=== PATIENT | female | born 1995 | race Caucasian/White ===

== ENCOUNTER 2022-03-31 08:28 | Outpatient (CLI) | payer OTHER, SELFPAY ==
[2022-03-31 12:13] LABS: Albumin* 4.4 g/dL (3.3-5.0)
[2022-03-31 12:14] LABS: Chloride* 102 mmol/L (96-114); Sodium* 139 mmol/L (135-149)
[2022-03-31 12:15] LABS: Potassium* 4.1 mmol/L (3.6-5.1)
[2022-03-31 12:16] LABS: Cholesterol* 168 mg/dL (90-199); Creatinine* 0.6 mg/dL (0.5-1.5); Estimated Glomerular Filt Rate 125 ml/min
[2022-03-31 12:17] LABS: Alanine Aminotransferase* 24 U/L (4-35); Alkaline Phosphatase* 105 U/L (40-150); Aspartate Amino Transferase* 27 U/L (12-35); Bilirubin Total* 0.7 mg/dL (0.1-1.5); Blood Urea Nitrogen* 14 mg/dL (5-24); Calcium* 9.2 mg/dL (8.4-10.6); Carbon Dioxide* 29 mmol/L (20-32); Glucose* 86 mg/dL (60-115); Total Protein* 7.5 g/dL (6.0-8.3); Triglycerides* 60 mg/dL (40-149)
[2022-03-31 12:18] LABS: HDL Cholesterol* 69 mg/dL (>=50); LDL Cholesterol Calculated 87 mg/dL (<100)
[2022-04-03 13:27] LABS: Free T4 Free Thyroxine* 1.26 ng/dL (0.70-1.85)
== END 2022-03-31 08:29 | disposition home or self-care (01) ==
LOC: LKVLAB 08:28
PROVIDERS: PCP Physician Assistant Medical; Visit Provider Physician Assistant Medical
DX: Z00.00 Encounter for general adult medical examination without abnormal findings (principal); E06.3 Autoimmune thyroiditis; Z13.6 Encounter for screening for cardiovascular disorders
CPT/HCPCS: 36415; 80053; 80061

== ENCOUNTER 2022-04-03 10:21 | Outpatient (CLI) | payer OTHER, SELFPAY | END 2022-04-03 10:22 | disposition home or self-care (01) | LOC: LKVREF 10:34 | PROVIDERS: PCP Physician Assistant Medical; Visit Provider Physician Assistant Medical | DX: Z00.00 Encounter for general adult medical examination without abnormal findings (principal); E06.3 Autoimmune thyroiditis; N63.0 Unspecified lump in unspecified breast | CPT/HCPCS: 36415; 84439; 84443 ==

== ENCOUNTER 2022-04-04 10:13 | Outpatient (CLI) | payer OTHER, SELFPAY ==
--- NOTE | 2022-04-04 10:15 | CRLHL7_ITS ---
For Patients: As a result of the Cures Act, medical imaging exams and procedure reports are released immediately into your electronic medical record. You may view this report before your referring provider. If you have questions, please contact your health care provider. RIGHT BREAST ULTRASOUND CLINICAL HISTORY: Palpable area RIGHT breast. Breast feeding x11 months. COMPARISON: None. TECHNIQUE: Real-time ultrasound imaging of RIGHT breast with imaging documentation. Scanning was performed by both the technologist and the radiologist. FINDINGS: Targeted RIGHT breast ultrasound to the area of concern performed, lower outer quadrant, 8 o`clock position. Dense fibroglandular tissue noted with multiple distended ducts containing milk products. No abscess or galactocele. No solid mass. IMPRESSION: Multiple duct ectasia with milk products. RECOMMENDATIONS: Clinical follow-up. Age-appropriate screening mammography. Results and recommendations were discussed with the patient at the time of the exam. BI-RADS Category 2: Benign A lay language report of this examination will be provided to the patient. Dictated by Emanuel Deleon MD @ 04/04/2022 10:43:32 AM /Dictated by: Emanuel Deleon MD @ 04/04/2022 10:43:00 AM (Electronically Signed)
== END 2022-04-04 10:14 | disposition home or self-care (01) ==
PROVIDERS: PCP Physician Assistant Medical; Visit Provider Physician Assistant Medical
DX: N63.10 Unspecified lump in the right breast, unspecified quadrant (principal); N60.41 Mammary duct ectasia of right breast
CPT/HCPCS: 76642

== ENCOUNTER 2022-07-13 13:53 | Outpatient (CLI) | payer OTHER, SELFPAY | END 2022-07-13 13:54 | disposition home or self-care (01) | LOC: LKVREF 16:26 | PROVIDERS: PCP Physician Assistant Medical; Visit Provider Physician Assistant Medical | DX: E03.9 Hypothyroidism, unspecified (principal) | CPT/HCPCS: 84443 ==

== ENCOUNTER 2023-06-13 13:08 | Outpatient (CLI) | payer OTHER, SELFPAY | END 2023-06-13 13:09 | disposition home or self-care (01) | PROVIDERS: PCP Physician Assistant Medical; Visit Provider Physician Assistant Medical | DX: Z00.00 Encounter for general adult medical examination without abnormal findings (principal); E03.9 Hypothyroidism, unspecified; E06.3 Autoimmune thyroiditis; R19.8 Other specified symptoms and signs involving the digestive system and abdomen; Z13.6 Encounter for screening for cardiovascular disorders; Z13.0 Encounter for screening for diseases of the blood and blood-forming organs and certain disorders involving the immune mechanism | CPT/HCPCS: 80053; 80061; 84443; 86140 ==

== ENCOUNTER 2024-04-04 12:50 | Outpatient (CLI) | payer OTHER, SELFPAY ==
--- NOTE | 2024-04-04 13:00 | CRLHL7_ITS ---
For Patients: As a result of the Cures Act, medical imaging exams and procedure reports are released immediately into your electronic medical record. You may view this report before your referring provider. If you have questions, please contact your health care provider. INDICATION: First trimester scan, establish dates. COMPARISON: None. TECHNIQUE: Real-time phillips-scale imaging of the pelvis was performed. FINDINGS: Sonographic imaging demonstrates a twin living intrauterine gestation, diamniotic/dichorionic. Twin A: The embryo demonstrates a regular cardiac rate measuring 167 beats per minute. The embryo`s crown-rump length measurement of 2.8 cm corresponds to a gestational age of 9 weeks 4 days with a sonographic due date of 11/03/2024. There is a normal-appearing yolk sac. There are no gross abnormalities noted within the embryo at this early state of development. The gestational sac has a normal appearance. Twin B: The embryo demonstrates a regular cardiac rate measuring 169 beats per minute. The embryo`s crown-rump length measurement of 2.9 cm corresponds to a gestational age of 9 weeks 5 days with a sonographic due date of 11/02/2024. There is a normal-appearing yolk sac. There are no gross abnormalities noted within the embryo at this early state of development. The gestational sac has a normal appearance. The cervix is closed. The myometrium appears normal. The ovaries are of normal size. There are no suspicious fluid collections noted in the cul-de-sac. A small superior subchorionic hemorrhage is noted measuring 2.1 x 1.2 x 0.8 cm. IMPRESSION: Twin A: Gestational age calculated at 9 weeks 4 days with a sonographic due date of 11/03/2024. Twin B: Gestational age calculated at 9 weeks 5 days with a sonographic due date of 11/02/2024. Dictated by Emanuel Deleon MD @ 04/04/2024 10:32:43 PM (Electronically Signed)
== END 2024-04-04 12:51 | disposition home or self-care (01) ==
PROVIDERS: PCP Physician Assistant Medical; Visit Provider Registered Nurse
DX: Z34.91 Encounter for supervision of normal pregnancy, unspecified, first trimester (principal); O30.041 Twin pregnancy, dichorionic/diamniotic, first trimester; Z3A.09 9 weeks gestation of pregnancy
CPT/HCPCS: 76817; 82565; 82570; 84156; 84439; 84443; 84450; 84460; 84520; 86592; 86703; 86704; 86706; 86762; 86787; 86803; 86850; 86900; 86901; 87086; 87340; 87491; 87591

== ENCOUNTER 2024-04-11 09:15 | Outpatient (CLI) | payer OTHER, SELFPAY | END 2024-04-11 09:16 | disposition home or self-care (01) | LOC: NFLDREF 04-15 16:01 | PROVIDERS: PCP Physician Assistant Medical; Referring Provider Physician Assistant Medical; Visit Provider Registered Nurse | DX: Z34.81 Encounter for supervision of other normal pregnancy, first trimester (principal) | CPT/HCPCS: 82570; 84156 ==

== ENCOUNTER 2024-05-02 13:16 | Outpatient (CLI) | payer OTHER, SELFPAY | END 2024-05-02 13:17 | disposition home or self-care (01) | PROVIDERS: PCP Physician Assistant Medical; Visit Provider Obstetrics & Gynecology | DX: O30.001 Twin pregnancy, unspecified number of placenta and unspecified number of amniotic sacs, first trimester (principal); E06.3 Autoimmune thyroiditis; E03.9 Hypothyroidism, unspecified; Z3A.13 13 weeks gestation of pregnancy | CPT/HCPCS: 84439; 84443; 84481 ==

== ENCOUNTER 2024-05-29 14:46 | Outpatient (CLI) | payer OTHER, SELFPAY | END 2024-05-29 14:47 | disposition home or self-care (01) | LOC: NFLDREF 14:47 | PROVIDERS: PCP Physician Assistant Medical; Visit Provider Obstetrics & Gynecology | DX: E03.9 Hypothyroidism, unspecified (principal) | CPT/HCPCS: 84443 ==

== ENCOUNTER 2024-07-29 12:51 | Outpatient (CLI) | payer OTHER, SELFPAY ==
--- NOTE | 2024-07-29 13:00 | CRLHL7_ITS ---
For Patients: As a result of the Century Cures Act, medical imaging exams and procedure reports are released immediately into your electronic medical record. You may view this report before your referring provider. If you have questions, please contact your health care provider. INDICATION: Di-di twins COMPARISON: 06/23/2024 TECHNIQUE: Real-time grayscale imaging of the twins was performed. FINDINGS: Sonographic imaging demonstrates a living twin intrauterine gestation. Twin A demonstrates a regular cardiac rate of 155 beats per minute. Twin A has a breech position. The placenta lies anteriorly. Amniotic fluid volume appears normal and the largest fluid pocket measures 7.2 cm. The estimated weight is 940 gm which lies at the 59th percentile. BPD 48th percentile. HC 30th percentile. AC is 71st percentile. FL 33rd percentile. The HC/AC ratio measures 1.07 range (1.05-1.22). Twin B demonstrates a regular cardiac rate of 165 beats per minute. Twin B has a breech position. The placenta lies posterior. Amniotic fluid volume appears normal and the largest fluid pocket measures 5.1 cm. The estimated weight is 988 gm which lies at the 74th percentile. BPD 30th percentile. HC 33rd percentile. AC 80th percentile. FL 51st percentile. The HC/AC ratio measures 1.05 range (1.05-1.22). IMPRESSION: Twin A: Sonographic gestational age 26 weeks 2 days and a sonographic due date of 11/02/2024. Estimated weight 59th percentile. Abdominal circumference 71st percentile. Twin B: Sonographic gestational age 26 weeks 3 days and a sonographic due date of 11/01/2024. Estimated weight 74th percentile. Abdominal circumference 80th percentile Dictated by Emanuel Deleon MD @ 07/30/2024 12:21:14 PM (Electronically Signed)
== END 2024-07-29 12:52 | disposition home or self-care (01) ==
PROVIDERS: PCP Physician Assistant Medical; Visit Provider Obstetrics & Gynecology
DX: O30.042 Twin pregnancy, dichorionic/diamniotic, second trimester (principal); Z3A.26 26 weeks gestation of pregnancy
CPT/HCPCS: 76816

== ENCOUNTER 2024-08-01 14:24 | Outpatient (CLI) | payer OTHER, SELFPAY ==
[2024-08-01] VITALS (10 sets, daily range): BP systolic 118–127; BP diastolic 64–77; PULSE 73–80; RESP 18; TEMP 36.6; O2SAT 97–100
--- NOTE | 2024-08-01 18:14 | PC.OBNST ---
NST Note NST Note Start: 08/01/24 14:28 Freq: ONCE Status: Active Protocol: Document 08/01/24 18:07 VMM (Rec: 08/01/24 18:14 VMM Desktop) NST Note 2 Para (# of births) 1 EDC 11/04/24 Gestational Age In Weeks & Days 26 Weeks & 3 Days High Risk Factors Twins Patient Presented with Complaint(s) of Other Other Complaints Patient described feeling off . She had had increased swelling on her right side. Yesterday she had visual disturbance that presented as flashes of light. She took her blood pressure at home, and it was 120/70 and after re- check it was 121/100. Patient states that these blood pressure readings are higher than her normal baseline. The patient has a history of severe pre-eclampsia. This note is for Baby A. Reactive Yes Appropriate for Gestational Age Yes DARCY Luna RN Date 08/01/24 Reactive Yes Appropriate for Gestational Age Yes JANNA Strong Date 08/01/24 OB NST charge Yes Complete NST Note via Write Note Yes The provider's electronic signature indicates the NST is reactive/appropriate for gestational age. *Note to provider: If an addendum is required, open the patient's chart and click on the note under the Nurse/Allied Health tab.
--- NOTE | 2024-08-01 18:18 | PC.OBNST ---
NST Note NST Note Start: 08/01/24 14:28 Freq: ONCE Status: Active Protocol: Document 08/01/24 18:16 VMM (Rec: 08/01/24 18:18 VMM Desktop) NST Note 2 Para (# of births) 1 EDC 11/04/24 Gestational Age In Weeks & Days 26 Weeks & 3 Days High Risk Factors Twins Patient Presented with Complaint(s) of Other Other Complaints Patient described feeling off . She had had increased swelling on her right side. Yesterday she had visual disturbance that presented as flashes of light. She took her blood pressure at home, and it was 120/70 and after re- check it was 121/100. Patient states that these blood pressure readings are higher than her normal baseline. The patient has a history of severe pre-eclampsia. This note is for Baby B. Reactive Yes Appropriate for Gestational Age Yes DARCY Luna RN Date 08/01/24 Reactive Yes Appropriate for Gestational Age Yes JANNA Strong Date 08/01/24 OB NST charge Yes Complete NST Note via Write Note Yes The provider's electronic signature indicates the NST is reactive/appropriate for gestational age. *Note to provider: If an addendum is required, open the patient's chart and click on the note under the Nurse/Allied Health tab.
== END 2024-08-01 16:28 | disposition home or self-care (01) ==
LOC: OB OUT 14:24 → OB 14:25
PROVIDERS: PCP Physician Assistant Medical; Visit Provider Obstetrics & Gynecology
DX: O30.002 Twin pregnancy, unspecified number of placenta and unspecified number of amniotic sacs, second trimester (principal); Z3A.26 26 weeks gestation of pregnancy
CPT/HCPCS: 59025; G0463

== ENCOUNTER 2024-08-11 08:40 | Outpatient (CLI) | payer OTHER, SELFPAY | END 2024-08-11 08:41 | disposition home or self-care (01) | LOC: NFLDREF 08-14 05:17 | PROVIDERS: PCP Physician Assistant Medical; Referring Provider Physician Assistant Medical; Visit Provider Obstetrics & Gynecology | DX: O30.042 Twin pregnancy, dichorionic/diamniotic, second trimester (principal); E06.3 Autoimmune thyroiditis; Z3A.27 27 weeks gestation of pregnancy | CPT/HCPCS: 84443; 86592 ==

== ENCOUNTER 2024-08-26 08:53 | Outpatient (CLI) | payer OTHER, SELFPAY ==
--- NOTE | 2024-08-26 09:00 | CRLHL7_ITS ---
For Patients: As a result of the Century Cures Act, medical imaging exams and procedure reports are released immediately into your electronic medical record. You may view this report before your referring provider. If you have questions, please contact your health care provider. INDICATION: Twin , dichorionic diamniotic TECHNIQUE: Conventional transabdominal two-dimensional phillips-scale ultrasound examination. COMPARISON: 07/29/2024 FINDINGS: There is are living twins with gestational age of 30 weeks and EDC of 11/04/2024. Twin A: Cephalic, on maternal left. Gestational age based on today`s measurements 30 weeks 3 days. BPD: 7.9 cm, 31 weeks 6 days Head circumference: 28.1 cm, 30 weeks 6 days Abdominal circumference: 25.5 cm, 29 weeks 5 days Femur length: 5.5 cm, 29 weeks 1 day The weight is estimated at 1450 grams, the 29th percentile. The heart rate is measured at 150 beats per minute and the rhythm appears regular. The placenta is anterior and above the cervical os. There is no evidence of previa. The amniotic fluid volume is within normal limits with single deepest pocket measured at 4.8 cm. Twin B: Breech, on maternal right. Gestational age based on today`s measurements 30 weeks 1 day. BPD: 5.3 cm, 30 weeks 1 day Head circumference: 27.8 cm, 30 weeks 3 days Abdominal circumference: 26.0 cm, 30 weeks 1 day Femur length: 5.7 cm, 29 weeks 5 days The weight is estimated at 1502 grams, the 39th percentile. The heart rate is measured at 131 beats per minute and the rhythm appears regular. The placenta is posterior and above the cervical os. There is no evidence of previa. The amniotic fluid volume is within normal limits with single deepest pocket of 5.3 cm. IMPRESSION: 1. Living dichorionic diamniotic twins with gestational age of 30 weeks and EDC of 11/04/2024. 2. Measurements in both babies normal for dates. 3. No complication evident. Dictated by oDnn Espinoza MD @ 08/28/2024 6:07:33 AM (Electronically Signed)
== END 2024-08-26 08:54 | disposition home or self-care (01) ==
LOC: US 08:53
PROVIDERS: PCP Physician Assistant Medical; Visit Provider Obstetrics & Gynecology
DX: O30.043 Twin pregnancy, dichorionic/diamniotic, third trimester (principal); Z3A.30 30 weeks gestation of pregnancy
CPT/HCPCS: 76816

== ENCOUNTER 2024-08-26 10:25 | Outpatient (CLI) | payer OTHER, SELFPAY ==
--- NOTE | 2024-08-26 11:15 | CRLHL7_ITS ---
For Patients: As a result of the Century Cures Act, medical imaging exams and procedure reports are released immediately into your electronic medical record. You may view this report before your referring provider. If you have questions, please contact your health care provider. INDICATION: Significant swelling and twin TECHNIQUE: Ultrasound venous duplex lower right extremity. Compression venous exam was performed using phillips-scale, color Doppler, and spectral Doppler imaging. COMPARISON: None. FINDINGS: Sonographic imaging demonstrates the right common femoral, deep femoral, superficial femoral, popliteal, posterior tibial and greater saphenous and the contralateral left common femoral veins to be fully compressible with normal color Doppler blood flow. IMPRESSION: Normal right lower extremity venous ultrasound, no sign of deep venous thrombosis. Dictated by David Ornelas MD @ 08/26/2024 11:31:18 AM (Electronically Signed)
== END 2024-08-26 10:26 | disposition home or self-care (01) ==
LOC: US 10:26
PROVIDERS: PCP Physician Assistant Medical; Visit Provider Obstetrics & Gynecology
DX: O26.899 Other specified pregnancy related conditions, unspecified trimester (principal); M79.89 Other specified soft tissue disorders
CPT/HCPCS: 93971

== ENCOUNTER 2024-09-04 12:16 | Outpatient (CLI) | payer OTHER, SELFPAY ==
[2024-09-04] VITALS (9 sets, daily range): BP systolic 124–136; BP diastolic 79–86; PULSE 69–84; RESP 16; TEMP 36.8; O2SAT 98
--- OUTSIDE RECORDS SUMMARY | 2024-09-04 11:44 | XMS_ITS | Clinical Summary ---
Author Organization [facility] Address [place], [place] [address] Care Team Providers Care Home Service Consultant Name Role Phone Rashida Salas PA-C Primary Care Provider [phone] Allergies Active Allergy Reactions Criticality Noted Date Comments Amoxicillin Rash Low 09/30/2020 Medications Levothyroxine 125 mcg cap Daily 10/01/2020 Active VIT [id number]-DHA ORAL Daily Active Social History Tobacco Use Types Packs/Day Years Used Date Smoking Tobacco: Never Smokeless Tobacco: Never Tobacco Cessation:Counseling Given: Yes Social Connections Answer Date Recorded Frequency of Communication with Friends and Fami ly Not on file 09/03/2021 Financial Resource Strain Answer Date R ecorded Difficulty of Paying Living Expenses Not on file 09/03/2021 Difficulty of Paying Living Expenses Not on file 09/03/2021 Comments Unknown Sex and Gender Information Value Date Recorded Sex Assigned at Not on file Legal Sex Female 5:08 PM [employer] Gender Identity Not on file Sexual Orientation Not on file Obstetrics History Last Filed Vital Signs Vital Sign Reading Time Taken Comments Blood Pressure 130/66 10/27/2020 3:19 PM [employer] SAL[employer] Pulse 78 10/27/2020 3:19 PM [employer] Temperature - - Respiratory Rate - - Oxygen Saturation 100% 10/27/2020 3:19 PM [employer] SAL[employer] Inhaled Oxygen Concentration - - Weight 60.5 kg (133 lb 6.4 oz) 10/27/2020 3:19 P M [employer] Height - - Body Mass Index - - Plan of Treatment Health Maintenance Due Date Last Done Comments Tdap 2005 Depression screening for age 12+ 2006 HIV for age 15-65 2009 BMI (ht and wt on same day) for age 18+ 2012 Hepatitis C screening for ag e 18-79 2012 Tetanus booster 2014 COVID-19 vaccine series ( season) 2024 Influenza for age 9-49 05/04/2024 Pap test for age 21-65 04/04/2027 , 04/04/2024, 09/30/2020 Pneumococcal series for age 6-49 Aged Out No longer eligible b ased on patient's age to complete this topic Procedures Procedure Name Priority Date/Time Associated Diagnosis Comments HPV HIGH RISK Routine 04/04/2024 3:00 PM CDT from Last 3 Months or Most Recently Relevant to Health Maintenance Results * HPV HIGH RISK (04/04/2024 3:00 PM CDT) TYPE 16 Negative Negative 04/09/2024 4:20 PM CDT [facility] TYPE 18 Negative Negative 04/09/2024 4:20 PM CDT [facility] OTHER HIGH RISK TYPES Negative Negative 04/09/2024 4:20 PM CDT [facility] Other (Cervical) 04/04/2024 3:00 PM CDT 04/08/2024 12:57 PM CDT Narrative [facility] - 04/09/2024 4:20 PM CDT HPV types 16, 18, 31, 33, 35, 39, 45, 51, 52, 56, 58, 59, 66 and 68 DNA were undetectable or below the pre-set threshold. Methodology: Pelno Antonino 4800 HPV Test us Sunitha Delgado NP MICROBIOLOGY Final Res ult [facility] [address] [place] [address], from Last 3 Months or Most Recently Relevant to Health Maintenance Care Teams Home Service Consultant Relationship Specialty Start Date End Date Rashida Salas PA-C [id number] [address] PCP - General Emergency Medicine 10/27/20
--- OUTSIDE RECORDS SUMMARY | 2024-09-04 11:44 | XMS_ITS | Clinical Summary ---
Author Organization [place] Address [address] [facility] [place] [address] Care Team Providers Care Field Return Repairer Name Role Phone Rashida Salas PA-C Primary Care Provider Allergies No known active allergies Medications No known medications Encounters Date Type Department Care Team Description 06/23/2024 10:45 AM CDT Office Visit [facility] [address] [place] [phone] Margarita Chong MD Dichorionic diamniotic twin in second trimester (Primary Dx) 06/23/2024 9:30 AM CDT - 06/23/2024 11:59 PM CDT Hospital Encounter [facility] [address] [place] [phone] Margarita Chong MD related condition, antepartum Discharge Disposition: Home or Self Care 06/23/2024 Travel from Last 3 Months Immunizations Name Administration Dates Next Due DTAP (<7y) 03/08/1999 HIB (PRP-T) 04/12/1995,1994,1994 ,1994 HepB 01/01/1995,1994,1994 Historical DTP/aP 1994,1994,06/01/19 94 MMR 04/12/1995 Mantoux Tuberculin Skin Test 01/01/1995 Poliovirus, inactivated (IPV) 03/08/1999, 995,1994,1994 Varicella 04/12/1995 Family History Medical History Relation Comments Genitourinary Problems Mother Eating di sorder Relation Status Comments Brother 1 Alive Brother 2 Alive Father Alive Maternal Grandfather Alive Maternal Grandmother Alive Mother Alive Paternal Grandfather Alive Paternal Grandmother Alive Sister Alive Social History Tobacco Use Types Packs/Day Years Used Date Smoking Tobacco: Never Smokeless Tobacco: Never Alcohol Use Standard Drinks/Week Comments No 0 (1 standard drink = 0.6 oz pur e alcohol) Estimated Date of Delivery Comme nts Yes 11/04/2024 Based on last me nstrual period of 01/29/2024 Sex and Gender Information Value Date Recorded Sex Assigned at Not on file Legal Sex Female 5:07 AM PROGRAM SPECIALIST Gender Identity Not on file Sexual Orientation Not on file Last Filed Vital Signs Vital Sign Reading Time Taken Comments Blood Pressure 120/84 04/21/2024 11:52 AM CDT Pulse 76 04/21/2024 11:52 AM CDT Temperature 36.8 C (98.2 F) 09/18/2011 1:33 PM PROGRAM SPECIALIST Respiratory Rate 16 04/21/2024 11:52 AM CDT Oxygen Saturation 100% 04/21/2024 11:52 AM CDT Inhaled Oxygen Concentration - - Weight 61.2 kg (135 lb) 09/18/2011 1:33 PM PROGRAM SPECIALIST Height 160.7 cm (5' 3.25) 11/15/2009 3:05 PM CD T Body Mass Index - - Plan of Treatment Health Maintenance Due Date Last Done Comments ADVANCE CARE PLANNING 1994 ANNUAL REVIEW OF HM ORDERS 1994 HIV SCREENING 2009 YEARLY PREVENTIVE VISIT 11/15/2010 11/15/2009 HEPATITIS C SCREENING 2012 PHQ-2 (once per calendar year) 2023 MATERNAL SCREENING DISCUSSION 04/08/2024 COVID-19 Vaccine ( season) 2024 12/23/2020, 11/24/2020 INFLUENZA VACCINE (#1) 2024 3, 06/03/2021, 06/11/2020 OBGCT (OB) 07/15/2024 RSV VACCINE (1 - Risk 1-dose series) 09/09/2024 PAP 04/04/2027 04/04/2024, 04/04/2024 DTAP/TDAP/TD IMMUNIZATION (6 - Td or Tdap) 03/01/2031 03/01/2021, 03/08/1999, 1994, Additional history exists HEPATITIS B IMMUNIZATION Completed 995, 1994, 1994 HPV IMMUNIZATION Aged Out No longer e ligible based on patient's age to complete this topic MENINGITIS IMMUNIZATION Aged Out No l onger eligible based on patient's age to complete this topic Pneumococcal Vaccine: Pediatrics (0 to 5 Years) and At-Risk Patients (6 to 49 Years) Aged Out No longer eligible based on patient's age to complete this topic RSV MONOCLONAL ANTIBODY Aged Out No l onger eligible based on patient's age to complete this topic Procedures Procedure Name Priority Date/Time Associated Diagnosis Comments MFM TWINS US COMPREHENSIVE Routine 06/23/2024 10:54 AM CDT related condition, antepartum from Last 3 Months Results * MFM Twins US Comprehensive (06/23/2024 10:54 AM CDT) Anatomical Region Laterality Modality Ultrasound 06/23/2024 9:38 AM CDT Impressions 06/23/2024 12:18 PM CDT IMPRESSION ----- Dichorionic diamniotic twins at 20w 6d gestational age. Fetus 1 1. No anomalies commonly detected by ultrasound were identified in the detailed anatomic survey within the limits of ultrasound. 2. Growth parameters and estimated weight were consistent with gestational age predicted by assigned CHARISSA. 3. The amniotic fluid volume appeared normal. Fetus 2 1. No anomalies commonly detected by ultrasound were identified in the detailed anatomic survey within the limits of ultrasound. 2. Growth parameters and estimated weight were consistent with gestational age predicted by assigned CHARISSA. The inter-twin discordance was 11.2 %. 3. The amniotic fluid volume appeared normal. On transabdominal imaging the cervix appears long and closed. Narrative 06/23/2024 12:18 PM CDT Comprehensive ----- Pat. Name: TISHA HUIZAR Study Date: 06/23/2024 9:38am Pat. NO: [id number] Referring MD: WHITNEY MORAES Site: Hair Colorist: Adelia Rajput RDMS : 1995 Age: 29 ----- INDICATION ----- Dichorionic, Diamniotic Twin gestation METHOD ----- Transabdominal ultrasound examination. View: Sufficient. ----- Twin . Number of fetuses: 2. Dichorionic-diamniotic DATING ----- Date Details Gest. age CHARISSA LMP 01/29/2024 20 w + 6 d 11/04/2024 Previous U/S 04/04/2024 GA, GA 9 w + 5 d 21 w + 1 d 11/02/2024 U/S Fetus 1 06/23/2024 based upon AC, BPD, Femur, HC 21 w + 0 d 11/03/2024 U/S Fetus 2 based upon AC, BPD, Femur, HC 21 w + 2 d 11/01/2024 Assigned dating based on the LMP, selected on 04/21/2024 20 w + 6 d 11/04/2024 Fetus 1: GENERAL EVALUATION ----- Cardiac activity present. FHR 149 bpm. movements: present. Presentation: cephalic, presenting, maternal left Placenta: anterior, thick dividing membrane, no previa > 2 cm from internal os Umbilical cord: Cord vessels: 3 vessel cord. Insertion site: normal insertion Amniotic fluid: Amount of AF: normal. MVP 7.6 cm Fetus 2: GENERAL EVALUATION ----- Cardiac activity present. FHR 159 bpm. movements: present. Presentation: cephalic, maternal right Placenta: posterior, thick dividing membrane Umbilical cord: Cord vessels: 3 vessel cord. Insertion site: normal insertion Amniotic fluid: Amount of AF: normal. MVP 4.7 cm Fetus 1: BIOMETRY ----- BPD 51.2 mm 21w 4d Hadlock OFD 64.0 mm 20w 3d Nicolaides HC 184.2 mm 20w 5d Hadlock Cerebellum tr 21.2 mm 20w 1d Nicolaides Nuchal fold 4.9 mm AC 157.2 mm 20w 6d 44% Hadlock Femur 34.1 mm 20w 5d Hadlock Humerus 31.7 mm 20w 4d Yusra Weight Calculation: EFW 380 g 43% Hadlock EFW (lb,oz) 0 lb 13 oz EFW by Hadlock ([id number]) EFW discordance 11.2 % Head / Face / Neck Biometry: White Work Cleaner 5.7 mm CM 3.6 mm Nasal bone 5.9 mm Fetus 2: BIOMETRY ----- BPD 50.7 mm 21w 3d Hadlock OFD 64.3 mm 20w 3d Nicolaides HC 182.7 mm 20w 5d Hadlock Cerebellum tr 22.5 mm 21w 2d Nicolaides Nuchal fold 4.8 mm AC 169.2 mm 21w 6d 77% Hadlock Femur 35.4 mm 21w 1d Hadlock Humerus 34.0 mm 21w 4d Yusra Weight Calculation: EFW 428 g 77% Hadlock EFW (lb,oz) 0 lb 15 oz EFW by Hadlock ([id number]) EFW discordance 11.2 % Head / Face / Neck Biometry: White Work Cleaner 4.2 mm CM 3.5 mm Nasal bone 6.3 mm Fetus 1: ANATOMY ----- The following structures appear normal: Head / Neck Cranium. Head size. Head shape. Lateral ventricles. Choroid plexus. Midline falx. Cavum septi pellucidi. Cerebellum. Cisterna magna. Parenchyma. Thalami. Vermis. Neck. Nuchal fold. Face Lips. Profile. Nose. Maxilla. Mandible. Orbits. Lens. Heart / Thorax 4-chamber view. RVOT view. LVOT view. 3-vessel view. 7-xvdcbl-mekhpid view. Situs. Aortic arch view. Bicaval view. Ductal arch view. Superior vena cava. Inferior vena cava. Cardiac position. Cardiac size. Cardiac rhythm. Right lung. Left lung. Diaphragm. Abdomen Abdom. wall. Cord insertion. Stomach. Kidneys. Bladder. Liver. Bowel. Genitals. Spine Cervical spine. Thoracic spine. Lumbar spine. Sacral spine. Extremities / Skeleton Arms. Right arm. Right hand. Left arm. Left hand. Legs. Right leg. Right foot. Left leg. Left foot. sex: female. Fetus 2: ANATOMY ----- The following structures appear normal: Head / Neck Cranium. Head size. Head shape. Lateral ventricles. Choroid plexus. Midline falx. Cavum septi pellucidi. Cerebellum. Cisterna magna. Parenchyma. Thalami. Vermis. Neck. Nuchal fold. Face Lips. Profile. Nose. Maxilla. Mandible. Orbits. Lens. Heart / Thorax 4-chamber view. RVOT view. LVOT view. 3-vessel view. 3-nsdssl-mhwgqus view. Situs. Aortic arch view. Bicaval view. Ductal arch view. Superior vena cava. Inferior vena cava. Cardiac position. Cardiac size. Right lung. Left lung. Diaphragm. Abdomen Abdom. wall. Cord insertion. Stomach. Kidneys. Bladder. Liver. Bowel. Genitals. Spine Cervical spine. Thoracic spine. Lumbar spine. Sacral spine. Extremities / Skeleton Arms. Right hand. Left hand. Legs. Right foot. Left foot. sex: female. MATERNAL STRUCTURES ----- Uterus Fibroid(s) Size 36 mm x 26 mm x 19 mm. Mean 27.0 mm. Vol 9.312 cm . anterior, left Cervix Visualized Appearance: Appears Closed, Approach - Transabdominal: Cervical length 48.5 mm Right Ovary Visualized Left Ovary Visualized RECOMMENDATION ----- Thank-you for referring your patient for ultrasound assessment. I discussed the findings on today's ultrasound with the patient. I reviewed the limitations of ultrasound both in detecting aneuploidy and structural abnormalities. Ultrasound can routinely detect 80-90% of structural abnormalities. She had low risk cell free DNA for genetic screening this . Recommend monthly growth ultrasounds in addition to weekly testing starting at 36 weeks. Delivery is recommended no later than 38 weeks. I presume these follow up ultrasounds will be scheduled with your office, however, can also be scheduled with [facility] if preferred. Return to primary provider for continued care. If you have questions regarding today's evaluation or if we can be of further service, please contact the [facility]. I spent a total of 15 minutes on the date of this encounter including preparing to see the patient (reviewing medical records/tests), counseling and discussing the plan of care, documenting the visit in the electronic medical record, and communicating with other health intensive care unit registered nurse and/or care coordination. Procedure Note Margarita Chong MD - 06/23/2024 Comprehensive ----- Pat. Name: TISHA HUIZAR Study Date: 06/23/2024 9:38am Pat. NO: [id number] Referring MD: WHITNEY MORAES Site: Hair Colorist: Adelia Rajput RDMS : 1995 Age: 29 ----- INDICATION ----- Dichorionic, Diamniotic Twin gestation METHOD ----- Transabdominal ultrasound examination. View: Sufficient. ----- Twin . Number of fetuses: 2. Dichorionic-diamniotic DATING ----- DateDetailsGest. age CHARISSA LMP w + 6 d 11/04/2024 Previous U/S 04/04/2024 GA, GA9 w + 5 d21 w + 1 d 11/02/2024 U/S Fetus 1 06/23/2024 basedupon AC, BPD, Femur, HC 21w + 0 d 11/03/2024 U/S Fetus 2based upon AC, BPD, Femur, HC21 w + 2 d 11/01/2024 Assigned dating based on the LMP, selected on w + 6 d 11/04/2024 Fetus 1: GENERAL EVALUATION ----- Cardiac activity present. FHR 149 bpm. movements: present.Presentation: cephalic, presenting, maternal left Placenta: anterior, thick dividing membrane, no previa > 2 cm frominternal os Umbilical cord: Cord vessels: 3 vessel cord. Insertion site: normalinsertion Amniotic fluid: Amount of AF: normal. MVP 7.6 cm Fetus 2: GENERAL EVALUATION ----- Cardiac activity present. FHR 159 bpm. movements: present.Presentation: cephalic, maternal right Placenta: posterior, thick dividing membrane Umbilical cord: Cord vessels: 3 vessel cord. Insertion site: normalinsertion Amniotic fluid: Amount of AF: normal. MVP 4.7 cm Fetus 1: BIOMETRY ----- BPD 51.2mm 21w 4dHadlock OFD 64.0mm 20w 3dNicolaides HC 184.2mm 20w 5dHadlock Cerebellum tr 21.2mm 20w 1dNicolaides Nuchal fold 4.9mm AC 157.2mm 20w 6d 44%Hadlock Femur 34.1mm 20w 5dHadlock Humerus 31.7mm 20w 4dJeanty Weight Calculation: EFW 380g 43%Hadlock EFW (lb,oz) 0 lb 13oz EFW by Hadlock([id number]) EFW discordance 11.2% Head / Face / Neck Biometry: White Work Cleaner 5.7mm CM 3.6mm Nasal bone 5.9mm Fetus 2: BIOMETRY ----- BPD 50.7mm 21w 3dHadlock OFD 64.3mm 20w 3dNicolaides HC 182.7mm 20w 5dHadlock Cerebellum tr 22.5mm 21w 2dNicolaides Nuchal fold 4.8mm AC 169.2mm 21w 6d 77%Hadlock Femur 35.4mm 21w 1dHadlock Humerus 34.0mm 21w 4dJeanty Weight Calculation: EFW 428g 77%Hadlock EFW (lb,oz) 0 lb 15oz EFW by Hadlock([id number]) EFW discordance 11.2% Head / Face / Neck Biometry: White Work Cleaner 4.2mm CM 3.5mm Nasal bone 6.3mm Fetus 1: ANATOMY ----- The following structures appear normal: Head / Neck Cranium. Head size. Head shape.Lateral ventricles. Choroid plexus. Midline falx. Cavum septi pellucidi.Cerebellum. Cisterna magna. Parenchyma. Thalami. Vermis. Neck. Nuchal fold. Face Lips. Profile. Nose. Maxilla.Mandible. Orbits. Lens. Heart / Thorax 4-chamber view. RVOT view. LVOT view.3-vessel view. 1-vdpnoh-ugfdlzo view. Situs. Aortic arch view. Bicavalview. Ductal arch view. Superior vena cava. Inferior vena cava.Cardiac position. Cardiac size. Cardiac rhythm. Right lung. Left lung.Diaphragm. Abdomen Abdom. wall. Cord insertion. Stomach.Kidneys. Bladder. Liver. Bowel. Genitals. Spine Cervical spine. Thoracic spine.Lumbar spine. Sacral spine. Extremities / Skeleton Arms. Right arm. Right hand. Left arm.Left hand. Legs. Right leg. Right foot. Left leg. Left foot. sex: female. Fetus 2: ANATOMY ----- The following structures appear normal: Head / Neck Cranium. Head size. Head shape.Lateral ventricles. Choroid plexus. Midline falx. Cavum septi pellucidi.Cerebellum. Cisterna magna. Parenchyma. Thalami. Vermis. Neck. Nuchal fold. Face Lips. Profile. Nose. Maxilla.Mandible. Orbits. Lens. Heart / Thorax 4-chamber view. RVOT view. LVOT view.3-vessel view. 7-zyguoj-tkbtwhe view. Situs. Aortic arch view. Bicavalview. Ductal arch view. Superior vena cava. Inferior vena cava.Cardiac position. Cardiac size. Right lung. Left lung.Diaphragm. Abdomen Abdom. wall. Cord insertion. Stomach.Kidneys. Bladder. Liver. Bowel. Genitals. Spine Cervical spine. Thoracic spine.Lumbar spine. Sacral spine. Extremities / Skeleton Arms. Right hand. Left hand. Legs. Rightfoot. Left foot. sex: female. MATERNAL STRUCTURES ----- Uterus Fibroid(s) Size 36 mm x 26 mm x 19mm. Mean 27.0 mm. Vol 9.312 cm . anterior, left Cervix Visualized Appearance: Appears Closed, Approach - Transabdominal:Cervical length 48.5 mm Right Ovary Visualized Left Ovary Visualized RECOMMENDATION ----- Thank-you for referring your patient for ultrasound assessment. I discussed the findings on today's ultrasound with the patient. Ireviewed the limitations of ultrasound both in detecting aneuploidy andstructural abnormalities. Ultrasound can routinely detect 80-90% of structural abnormalities. She had low riskcell free DNA for genetic screening this . Recommend monthly growth ultrasounds in addition to weekly antenataltesting starting at 36 weeks. Delivery is recommended no later than 38weeks. I presume these follow up ultrasounds will be scheduled with your office, however, canalso be scheduled with [facility] if preferred. Return to primary provider for continued care. If you have questions regarding today's evaluation or if we can be offurther service, please contact the [facility]. I spent a total of 15 minutes on the date of this encounter includingpreparing to see the patient (reviewing medical records/tests), counselingand discussing the plan of care, documenting the visit in the electronic medical record, andcommunicating with other health intensive care unit registered nurse and/or carecoordination. IMPRESSION ----- Dichorionic diamniotic twins at 20w 6d gestational age. Fetus 1 1. No anomalies commonly detected by ultrasound were identified inthe detailed anatomic survey within the limits of prenatalultrasound. 2. Growth parameters and estimated weight were consistent withgestational age predicted by assigned CHARISSA. 3. The amniotic fluid volume appeared normal. Fetus 2 1. No anomalies commonly detected by ultrasound were identified inthe detailed anatomic survey within the limits of prenatalultrasound. 2. Growth parameters and estimated weight were consistent withgestational age predicted by assigned CHARISSA. The inter-twin discordance was11.2 %. 3. The amniotic fluid volume appeared normal. On transabdominal imaging the cervix appears long and closed. us [facility] ORDERABLES Edited Result - Final from Last 3 Months Insurance [employer] [address] [place] [id number] [facility] COMMERCIAL Care Teams Field Return Repairer Relationship Specialty Start Date End Date Rashida Salas PA-C [facility] [address] [place] [address] PCP - General Physician Manager Environmental Services 05/21/24
--- OUTSIDE RECORDS SUMMARY | 2024-09-04 11:44 | XMS_ITS | Referral Summary ---
Author Organization [place] Address [address] [facility] [place] [address] Care Team Providers Care Air Intelligence Officer Name Role Phone Rashida Salas PA-C Primary Care Provider Encounters Date Type Department Care Team Description 06/23/2024 Travel 06/23/2024 10:45 AM CDT Office Visit [facility] [address] [place] [phone] Margarita Chong MD Dichorionic diamniotic twin in second trimester (Primary Dx) 06/23/2024 9:30 AM CDT - 06/23/2024 11:59 PM CDT Hospital Encounter [facility] Maternal Medicine [facility] [address] [facility] [address] [place] [phone] Margarita Chong MD related condition, antepartum Discharge Disposition: Home or Self Care from Last 3 Months Allergies No known active allergies Medications No known medications Immunizations Name Administration Dates Next Due DTAP (<7y) 03/08/1999 HIB (PRP-T) 04/12/1995,1994,1994 ,1994 HepB 01/01/1995,1994,1994 Historical DTP/aP 1994,1994,06/01/19 94 MMR 04/12/1995 Mantoux Tuberculin Skin Test 01/01/1995 Poliovirus, inactivated (IPV) 03/08/1999, 995,1994,1994 Varicella 04/12/1995 Social History Tobacco Use Types Packs/Day Years [...] on file Legal Sex Female 5:07 AM MAKEUP EDITOR Gender Identity Not on file Sexual Orientation Not on file Last Filed Vital Signs Vital Sign Reading Time Taken Comments Blood Pressure 120/84 04/21/2024 11:52 AM CDT Pulse 76 04/21/2024 11:52 AM CDT Temperature 36.8 C (98.2 F) 09/18/2011 1:33 PM MAKEUP EDITOR Respiratory Rate 16 04/21/2024 11:52 AM CDT Oxygen Saturation 100% 04/21/2024 11:52 AM CDT Inhaled Oxygen Concentration - - Weight 61.2 kg (135 lb) 09/18/2011 1:33 PM MAKEUP EDITOR Height 160.7 cm (5' 3.25) 11/15/2009 3:05 PM CD T Body Mass Index - - Plan of Treatment Not on file Procedures Procedure Name Priority Date/Time Associated Diagnosis Comments MFM TWINS COMPREHENSIVE Routine 06/23/2024 10:54 AM CDT related [...] HUIZAR Study Date: 06/23/2024 9:38am Pat. NO: [id number] Referring MD: WHITNEY MORAES Site: [place] Senior Sergeant: Adelia Rajput RDMS : 1995 Age: 29 [...] 0 lb 13 oz EFW by Hadlock ([id number]) EFW discordance 11.2 % Head / Face / Neck Biometry: Supervisor Slate Splitting 5.7 mm CM 3.6 mm Nasal bone [...] 0 lb 15 oz EFW by Hadlock ([id number]) EFW discordance 11.2 % Head / Face / Neck Biometry: Supervisor Slate Splitting 4.2 mm CM 3.5 mm Nasal bone 6.3 mm Fetus 1: ANATOMY ----- The following structures appear normal: Head / Neck Cranium. Head size. Head shape. Lateral ventricles. Choroid plexus. Midline falx. Cavum septi pellucidi. Cerebellum. Cisterna magna. Parenchyma. Thalami. Vermis. Neck. Nuchal fold. Face Lips. Profile. Nose. Maxilla. Mandible. Orbits. Lens. Heart / Thorax 4-chamber view. RVOT view. LVOT view. 3-vessel view. 0-ceomll-pbndozb view. Situs. Aortic arch view. Bicaval view. [...] view. RVOT view. LVOT view. 3-vessel view. 7-bqywvh-abszvzf view. Situs. Aortic arch view. Bicaval view. [...] office, however, can also be scheduled with [facility] if preferred. Return to primary provider for [...] medical record, and communicating with other health out of school hours care worker and/or care coordination. Procedure Note Margarita Chong MD - 06/23/2024 Comprehensive ----- Pat. Name: TISHA HUIZAR Study Date: 06/23/2024 9:38am Pat. NO: [id number] Referring MD: WHITNEY MORAES Site: [place] Senior Sergeant: Adelia Rajput RDMS : 1995 Age: 29 [...] EFW (lb,oz) 0 lb 13oz EFW by Hadlock([id number]) EFW discordance 11.2% Head / Face / Neck Biometry: Supervisor Slate Splitting 5.7mm CM 3.6mm Nasal bone 5.9mm Fetus 2: BIOMETRY ----- BPD 50.7mm 21w 3dHadlock OFD 64.3mm 20w 3dNicolaides HC 182.7mm 20w 5dHadlock Cerebellum tr 22.5mm 21w 2dNicolaides Nuchal fold 4.8mm AC 169.2mm 21w 6d 77%Hadlock Femur 35.4mm 21w 1dHadlock Humerus 34.0mm 21w 4dJeanty Weight Calculation: EFW 428g 77%Hadlock EFW (lb,oz) 0 lb 15oz EFW by Hadlock([id number]) EFW discordance 11.2% Head / Face / Neck Biometry: Supervisor Slate Splitting 4.2mm CM 3.5mm Nasal bone 6.3mm Fetus 1: ANATOMY ----- The following structures appear normal: Head / Neck Cranium. Head size. Head shape.Lateral ventricles. Choroid plexus. Midline falx. Cavum septi pellucidi.Cerebellum. Cisterna magna. Parenchyma. Thalami. Vermis. Neck. Nuchal fold. Face Lips. Profile. Nose. Maxilla.Mandible. Orbits. Lens. Heart / Thorax 4-chamber view. RVOT view. LVOT view.3-vessel view. 9-lmzsye-qfwrjdn view. Situs. Aortic arch view. Bicavalview. Ductal [...] 4-chamber view. RVOT view. LVOT view.3-vessel view. 5-ebvuzt-eyfvihn view. Situs. Aortic arch view. Bicavalview. Ductal [...] your office, however, canalso be scheduled with [facility] if preferred. Return to primary provider for [...] electronic medical record, andcommunicating with other health out of school hours care worker and/or carecoordination. IMPRESSION ----- Dichorionic diamniotic twins [...] cervix appears long and closed. us Mary Gallegos MD [facility] ORDERABLES Edited Result - Final from Last 3 Months Insurance [employer] COMMERCIAL [facility] COMMERCIAL [facility] COMMERCIAL Care Teams Air Intelligence Officer Relationship Specialty Start Date End Date Rashida Salas PA-C [facility] [address] [place] [address] PCP - General Physician Lining Maker Hand 05/21/24
--- NOTE | 2024-09-04 16:45 | PC.OBNST ---
NST Note NST Note Start: 09/04/24 12:39 Freq: ONCE Status: Active Protocol: Document 09/04/24 14:15 WK (Rec: 09/04/24 16:14 WK Desktop) NST Note 2 Para (# of births) 1 EDC 11/04/24 Gestational Age In Weeks & Days 31 Weeks & 2 Days High Risk Factors Twins Patient Presented with Complaint(s) of Other Other Complaints Pt c/o having borderline BP' s at home and increased edema. Twin A Appropriate for Gestational Age No DARCY Fried Date 09/04/24 Appropriate for Gestational Age No DARCY Bright RNC Date 09/04/24 OB NST charge Yes Complete NST Note via Write Note Yes NST Note Start: 09/04/24 16:42 Freq: ONCE Status: Active Protocol: Document 09/04/24 16:44 WK (Rec: 09/04/24 16:44 WK Desktop) NST Note 2 Para (# of births) 1 EDC 11/04/24 Gestational Age In Weeks & Days 31 Weeks & 2 Days High Risk Factors Twins Patient Presented with Complaint(s) of Other Other Complaints Pt c/o having borderline BP' s at home and increased edema. Twin B Reactive Yes DARCY Fried Date 09/04/24 Reactive Yes DARCY Bright RNC Date 09/04/24 OB NST charge Yes Complete NST Note via Write Note Yes The provider's electronic signature indicates the NST is reactive/appropriate for gestational age. *Note to provider: If an addendum is required, open the patient's chart and click on the note under the Nurse/Allied Health tab.
== END 2024-09-04 14:40 | disposition home or self-care (01) ==
LOC: OB OUT 12:17 → OB 12:17
PROVIDERS: PCP Physician Assistant Medical; Visit Provider Obstetrics & Gynecology
DX: O30.003 Twin pregnancy, unspecified number of placenta and unspecified number of amniotic sacs, third trimester (principal); Z3A.31 31 weeks gestation of pregnancy
CPT/HCPCS: 59025; G0463

== ENCOUNTER 2024-09-08 13:12 | Outpatient (CLI) | payer OTHER, SELFPAY ==
[2024-09-08] VITALS (15 sets, daily range): BP systolic 141–160; BP diastolic 89–99; PULSE 71–96; RESP 16; TEMP 37.2
[2024-09-08 14:18] LABS: Alanine Aminotransferase* 16 U/L (4-35); Aspartate Amino Transferase* 23 U/L (12-35); Blood Urea Nitrogen* 8 mg/dL (5-24); Creatinine* 0.3 mg/dL (0.5-1.5); Estimated Glomerular Filt Rate 146 ml/min; Hematocrit 36.3 % (33.0-51.0); Hemoglobin* 12.2 gm/dL (12.0-16.0); Mean Corpuscular HGB Conc 34 gm/dL (32-36); Mean Corpuscular Hemoglobin 30 pg (26-34); Mean Corpuscular Volume 88 fL (80-100); Platelet Count* 236 K/uL (140-440); Red Blood Count 4.14 m/uL (4.00-5.20)
[2024-09-08 14:19] LABS: Total Protein Urine 28 mg/dL
[2024-09-08 14:20] LABS: Creatinine Urine 32.2 mg/dL; Protein Creatinine Ratio Urine 0.87 (0-0.19)
[2024-09-08 14:26] LABS: Slide Review Reflex No
[2024-09-08] MEDS: BETAMETHASONE SOD PHOS/ACETATE 6 MG/ML ML 12 MG IM (16:43)
--- NOTE | 2024-09-08 16:49 | PM.OBLDTN ---
OB - Triage/Final Diagnosis Visit Information Time Seen by Provider: 16:49 Date Seen: 09/08/24 Narrative: The patient is a 29 year old 2 para 1 at 31w6d gestation by LMP, who presents from clinic for BP monitoring and preE labs. is complicated by dichorionic diamniotic twin gestation, history of preeclampsia with severe features, hypothyroidism, chronic diarrhea. Tisha was seen in clinic today for routine OB visit. There, she was found to have elevated blood pressure. Care was transferred down to the [facility], where serial blood pressure monitoring was ongoing for 4 hours. All of her blood pressures were in the mild to nonsustained severe range during this time. Preeclampsia labs were obtained, notably found to be within normal limits aside from worsening proteinuria. She denies headaches, vision changes or right upper quadrant pain. Denies regular/painful contractions, vaginal bleeding or leaking of fluid. Endorses active movement. I explained that Tisha's clinical picture is most consistent with preeclampsia without severe features. She certainly meets blood pressure criteria for elevated blood pressure, were notably she did have 1 nonsustained severe range blood pressure. She is asymptomatic and labs are within normal limits. I explained the diagnosis in detail, where medically indicated delivery would be recommended at 37 weeks at the latest (though can be individualized to consider assisted is 36 weeks in the setting of her dichorionic diamniotic twin gestation). I explained that her condition could worsen with time, where I do feel she is at significantly increased risk for this given her notable blood pressure elevation today, early gestational age, diet diet twins and history of preeclampsia with severe features. If she were to meet criteria for preeclampsia with severe features, I explained that admission to antepartum unit with medically indicated delivery at 34 weeks would be recommended. I would recommend betamethasone today, repeat in 24 hours to reduce complications of prematurity if medically indicated delivery is required in the coming weeks. Recommend she follow up tomorrow in clinic for a nurse blood pressure check and betamethasone #2. Explained that if she has any further severe range blood pressures this would be suggestive of progression to preE with severe features. Discussed outpatient monitoring for preeclampsia without severe features including twice weekly testing and blood pressure checks, weekly preeclampsia labs and provider visit. testing where she was completed, referrals will reach out to her tomorrow. Patient inquired about work status, where explained that she does not need to be off of work entirely nor on bed rest. A work note was provided for this afternoon and tomorrow to be a for completely, then I also outlined that she will require frequent absences for upcoming visits. All questions answered. Return precautions reinforced. Specifically, she is to call triage and present to care with any BP of >=160/110, unrelenting headache, vision changes or RUQ pain. Evaluation Laboratory results: Laboratory Tests 09/08/24 09/08/24 Range/Units 13:55 13:45 WBC 12.20 H (4.50-11.00) K/uL RBC 4.14 (4.00-5.20) m/uL Hgb 12.2 (12.0-16.0) gm/dL Hct 36.3 (33.0-51.0) % MCV 88 (80-100) fL MCH 30 (26-34) pg MCHC 34 (32-36) gm/dL Plt Count 236 (140-440) K/uL BUN 8 (5-24) mg/dL Creatinine 0.3 L (0.5-1.5) mg/dL Estimated GFR 146 ml/min AST 23 (12-35) U/L ALT 16 (4-35) U/L Urine Creatinine 32.2 mg/dL Protein/Creatinin Ratio 0.87 H (0-0.19) Urine Total Protein 28 mg/dL Vital signs: Vital Signs - 24 hr 09/08/24 13:39 09/08/24 13:47 09/08/24 13:54 Temperature 98.9 F Pulse Rate 75 86 Respiratory Rate 16 Blood Pressure 157/96 H 148/99 H 09/08/24 14:09 09/08/24 14:24 09/08/24 14:41 Temperature Pulse Rate 85 88 74 Respiratory Rate Blood Pressure 141/96 H 145/92 H 160/96 H 09/08/24 14:54 09/08/24 15:09 09/08/24 15:24 Temperature Pulse Rate 83 93 96 Respiratory Rate Blood Pressure 151/89 H 159/97 H 154/90 H 09/08/24 15:39 09/08/24 15:54 09/08/24 16:09 Temperature Pulse Rate 71 86 86 Respiratory Rate Blood Pressure 150/97 H 149/90 H 144/91 H 09/08/24 16:24 09/08/24 16:39 Temperature Pulse Rate 80 80 Respiratory Rate Blood Pressure 152/95 H 149/95 H
--- NOTE | 2024-09-08 17:16 | PC.OBNST ---
NST Note NST Note Start: 09/08/24 13:32 Freq: ONCE Status: Active Protocol: Document 09/08/24 17:10 CUMONIYH (Rec: 09/08/24 17:16 CUDDY [id number]) NST Note 2 Para (# of births) 1 EDC 11/04/24 Gestational Age In Weeks & Days 31 Weeks & 6 Days High Risk Factors High Blood Pressure - Gestational Patient Presented with Complaint(s) of Other Other Complaints Pt came down from clinic for blood pressure evaluation for pre-eclampsia Reactive Yes Appropriate for Gestational Age Yes RN Cynthia Parker RN Date 09/08/24 Reactive Yes Appropriate for Gestational Age Yes RN Dr. Hdez Date 09/08/24 OB NST charge Yes Complete NST Note via Write Note Yes The provider's electronic signature indicates the NST is reactive/appropriate for gestational age. *Note to provider: If an addendum is required, open the patient's chart and click on the note under the Nurse/Allied Health tab.
== END 2024-09-08 17:10 | disposition home or self-care (01) ==
LOC: OB OUT 13:12 → OB 13:13
PROVIDERS: PCP Physician Assistant Medical; Visit Provider Obstetrics & Gynecology
DX: O13.3 Gestational [pregnancy-induced] hypertension without significant proteinuria, third trimester (principal); Z3A.31 31 weeks gestation of pregnancy
CPT/HCPCS: 36415; 59025; 82565; 82570; 84156; 84450; 84460; 84520; 85027; G0463; J0702

== ENCOUNTER 2024-09-12 15:08 | Outpatient (CLI) | payer OTHER, SELFPAY ==
[2024-09-12] VITALS (18 sets, daily range): BP systolic 130–159; BP diastolic 80–90; PULSE 65–96; RESP 16; TEMP 36.7; O2SAT 96–98
[2024-09-12 16:47] LABS: Hematocrit 34.6 % (33.0-51.0); Hemoglobin* 11.6 gm/dL (12.0-16.0); Mean Corpuscular HGB Conc 34 gm/dL (32-36); Mean Corpuscular Hemoglobin 30 pg (26-34); Mean Corpuscular Volume 88 fL (80-100); Platelet Count* 229 K/uL (140-440); Red Blood Count 3.92 m/uL (4.00-5.20); White Blood Count* 10.32 K/uL (4.50-11.00)
[2024-09-12 16:48] LABS: Alanine Aminotransferase* 16 U/L (4-35); Aspartate Amino Transferase* 21 U/L (12-35); Blood Urea Nitrogen* 8 mg/dL (5-24); Creatinine* 0.4 mg/dL (0.5-1.5); Estimated Glomerular Filt Rate 136 ml/min
[2024-09-12 16:50] LABS: Slide Review Reflex No
--- NOTE | 2024-09-12 17:04 | P.OBT_ITS ---
History of Present Illness History of Present Illness History of Present Illness: 29 year old at 32 weeks gestation by LMP, CHARISSA 11/04/24, presents for blood pressure monitoring. is complicated by a new diagnosis of preeclampsia without severe features this week, dichorionic diamniotic twin gestation, history of preeclampsia with severe features, hypothyroidism, chronic diarrhea. She presented for twice weekly testing and a blood pressure check today, where she had a nonsustained severe range blood pressure in the clinic. Patient was transferred to the center for serial blood pressure monitoring and labs. Tisha notes she is feeling well today. She is understandably stressed about her elevated BPs. Denies headaches, vision changes or right upper quadrant pain. Denies regular/painful contractions, vaginal bleeding or leaking of fluids. Endorses active movement x2. Meds Home Medications and Allergies Home Medications ?Medication ?Instructions ?Recorded ?Confirmed ?Type docosahexaenoic acid 200 mg 200 mg PO DAILY 04/04/24 09/12/24 History capsule ( DHA) aspirin 81 mg chewable tablet 81 mg PO DAILY 08/01/24 09/12/24 History Allergies Allergy/AdvReac Type Severity Reaction Status Date / Time amoxicillin Allergy Mild Rash Verified 09/12/24 14:49 PFSH Medical History History of severe pre-eclampsia ?Z87.59 - Personal history of other complications of , childbirth and the puerperium (ICD-10) Family History Mother Lyme borreliosis Family/Other Family hx of prostate cancer Family/Other Stomach cancer Family/Other Thyroid disease Social History (Updated 04/09/24 @ 07:55 by Sunitha Delgado CNP) Narrative: . Has 1 son (2 yo). 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 What is your current living situation?: I presently have a place to live In the past 12 months, utilities in danger of being shut off: no In past 12 months, lack of transportation kept you from medical appts, meetings, work, or getting things needed for daily living: no In the past 12 mos, have been you worried that your food would run out before you had money to buy more?: never true Smoking Status: Never smoker How often does anyone, including family, friends and others, physically hurt you : never How often does anyone, including family, friends and others, insult or talk down to you: never How often does anyone, including family, friends and others, threaten you with harm: never How often does anyone, including family, friends and others, scream or curse at you: never History History 2 Elective abortions Para 1 Spontaneous abortions Hx # Term Pregnancies Ectopic pregnancies Hx # Pregnancies Multiple births Number of Living Children 0 Past Pregnancies Del. Date GA/Weeks Outcome Route wt Inf Gender Labor Lgth Anesthesia Location Provider Compli 05/12/21 40 live - full term 8 lb 2 oz Male [facility] OB - H&P: Exam Physical Exam Vital signs: Pulse BP Pulse Ox 77 159/90 H 97 09/12/24 17:00 09/12/24 17:00 09/12/24 15:24 Narrative: BP has ranged from the from 130-162/80-93. No sustained SRBP. General: Alert and oriented, in no acute distress Psych: Appropriate mood and affect Heart: Regular rate and rhythm, no rubs murmurs or gallops Lungs: Clear to posterior auscultation throughout. Abdomen: Gravid. Nontender. heart tones: Twin a: Reactive NST. Baseline of 150 beats per minute, moderate variability, several 15 x 15 accelerations, no decelerations. Twin B: Reactive NST. Baseline of 140 beats per minute, moderate variability, several 15 x 15 accelerations, no deceleration. Last growth ultrasound on 08/26 - - Twin A: Cephalic, maternal left. EFW 1450g at 29%ile. - Twin B: Breech, maternal right. EFW 1502g at 39%ile. Results Labs Laboratory Tests 09/12/24 Range/Units 16:20 WBC 10.32 (4.50-11.00) K/uL RBC 3.92 L (4.00-5.20) m/uL Hgb 11.6 L (12.0-16.0) gm/dL Hct 34.6 (33.0-51.0) % MCV 88 (80-100) fL MCH 30 (26-34) pg MCHC 34 (32-36) gm/dL Plt Count 229 (140-440) K/uL BUN 8 (5-24) mg/dL Creatinine 0.4 L (0.5-1.5) mg/dL Estimated GFR 136 ml/min AST 21 (12-35) U/L ALT 16 (4-35) U/L Assessment and Plan Assessment and plan (1) History of severe pre-eclampsia: Problem comment: post Status: Acute (2) Chronic diarrhea: Status: Acute (3) Hypothyroidism: Status: Acute (4) Dichorionic diamniotic twin gestation: Status: Acute Plan Tisha ratliff is a 29-year-old at 32 weeks 3 days gestational age by LMP seen in triage for blood pressure monitoring in the setting of preeclampsia diagnosed on 09/08. She has the new diagnosis of preeclampsia with severe features, by nonsustained severe range blood pressures that are by more than 4 hours today. Fortunately, she is asymptomatic with no headache, vision changes or right upper quadrant pain. Denies contractions, vaginal bleeding or leaking of fluid. Endorses active movement x2. Repeat HELLP labs today are within normal limits. I explained that I do feel she meets criteria for preeclampsia with severe features given to values of 160 systolic by more than [address] curbside [address]. Heath at [facility], who agrees. Recommend transfer of care to a facility that has in antepartum unit and NICU, for likely inpatient monitoring until medically indicated delivery is recommended at 34 weeks. Explained that delivery could be indicated sooner, in the setting of maternal or instability. Plan to start magnesium sulfate 4 grams/hours a loading dose followed by 2 grams/hour. Patient is hopeful for a twin vaginal delivery. Last growth ultrasound was completed on 08/26, anticipate this will be repeated at accepting facility to confirm she is a candidate based on presentations and growth discordance. At this time, I expect she would still be a candidate for induction if needed but explained that could be considered if she is uncomfortable with the risks associated with 1 vaginal delivery or in the setting of maternal or instability necessitating expedited delivery. All questions were answered. - Transfer was requested ultimately accepted at [facility] - Magnesium sulfate will be continued at 2 grams/hour during transport, diligent blood pressure monitoring ongoing. - s/p BMZ on 09/08 - 09/09 - GBS collected today, pending
[2024-09-12] MEDS: MAGNESIUM Infusion 40 GM/1,000 ML IV.SOLN IVPB (18:00)
--- NOTE | 2024-09-12 19:21 | PC.OBNST ---
NST Note NST Note Start: 09/12/24 15:17 Freq: ONCE Status: Active Protocol: Document 09/12/24 19:20 ABP (Rec: 09/12/24 19:21 ABP [id number]) NST Note 2 Para (# of births) 1 EDC 11/04/24 Gestational Age In Weeks & Days 32 Weeks & 3 Days High Risk Factors High Blood Pressure - Gestational,Twins Patient Presented with Complaint(s) of Other Other Complaints Sent from clinic for elevated blood pressure Reactive Yes Appropriate for Gestational Age Yes DARCY Hilliard, RNC Date 09/12/24 Reactive Yes Appropriate for Gestational Age Yes DARCY Luna, RN Date 09/12/24 OB NST charge Yes Complete NST Note via Write Note Yes The provider's electronic signature indicates the NST is reactive/appropriate for gestational age. *Note to provider: If an addendum is required, open the patient's chart and click on the note under the Nurse/Allied Health tab.
[2024-09-13 12:44] LABS: Strep B DNA Probe Negative (Negative)
[2024-09-13 12:47] LABS: Strep B Susceptibility Needed? No
--- NOTE | 2024-09-13 13:42 | PC.OBNST ---
NST Note NST Note Start: 09/12/24 15:17 Freq: ONCE Status: Discharge Protocol: Document 09/12/24 19:20 ABP (Rec: 09/12/24 19:21 ABP [id number]) NST Note 2 Para (# of births) 1 EDC 11/04/24 Gestational Age In Weeks & Days 32 Weeks & 3 Days High Risk Factors High Blood Pressure - Gestational,Twins Patient Presented with Complaint(s) of Other Other Complaints Sent from clinic for elevated blood pressure - Twin A Reactive Yes Appropriate for Gestational Age Yes JANNA Strong Date 09/12/24 Reactive Yes Appropriate for Gestational Age Yes DARCY Luna RN Date 09/12/24 OB NST charge Yes Complete NST Note via Write Note Yes NST Note Start: 09/13/24 13:39 Freq: ONCE Status: Active Protocol: Document 09/12/24 19:21 ABP (Rec: 09/13/24 13:42 ABP [id number]) NST Note 2 Para (# of births) 1 EDC 11/04/24 Gestational Age In Weeks & Days 32 Weeks & 4 Days High Risk Factors High Blood Pressure - Gestational,Twins Patient Presented with Complaint(s) of Other Other Complaints Sent from clinic for high blood pressure - Twin B Reactive Yes Appropriate for Gestational Age Yes JANNA Strong Date 09/12/24 Reactive Yes Appropriate for Gestational Age Yes DARCY Luna RN Date 09/12/24 OB NST charge Yes Complete NST Note via Write Note Yes The provider's electronic signature indicates the NST is reactive/appropriate for gestational age. *Note to provider: If an addendum is required, open the patient's chart and click on the note under the Nurse/Allied Health tab.
== END 2024-09-12 18:15 | disposition short-term general hospital (02) ==
LOC: OB OUT 15:10 → OB 15:13
PROVIDERS: PCP Physician Assistant Medical; Visit Provider Obstetrics & Gynecology
DX: O30.043 Twin pregnancy, dichorionic/diamniotic, third trimester (principal); Z3A.32 32 weeks gestation of pregnancy
CPT/HCPCS: 36415; 59025; 82565; 84450; 84460; 84520; 85027; 87081; 87653; G0463; J3475

== ENCOUNTER 2024-09-12 18:20 | Outpatient (CLI) | payer OTHER, SELFPAY | END 2024-09-12 18:21 | disposition home or self-care (01) | LOC: AMB 09-25 10:27 | PROVIDERS: PCP Physician Assistant Medical; Visit Provider Family Medicine | DX: O14.93 Unspecified pre-eclampsia, third trimester (principal); Z3A.32 32 weeks gestation of pregnancy | CPT/HCPCS: A0425; A0434 ==

== ENCOUNTER 2025-02-20 13:50 | Outpatient (CLI) | payer OTHER, SELFPAY | END 2025-02-20 13:51 | disposition home or self-care (01) | PROVIDERS: PCP Physician Assistant Medical; Visit Provider Family Medicine | DX: E03.9 Hypothyroidism, unspecified (principal); R74.8 Abnormal levels of other serum enzymes; R20.0 Anesthesia of skin | CPT/HCPCS: 80076; 82607; 84443 ==